=== PATIENT | male | born 1975 | race African-American/Black ===

== ENCOUNTER 2019-08-27 02:28 | Emergency (ER) | payer OTHER ==
--- NOTE | 2019-08-27 02:40 | ED Physician Documentation ---
PD HPI ABD PAIN - Stated complaint Stated Complaint: ABD PX/BACK PX - Chief complaint Chief Complaint: Abd Pain - History obtained from History obtained from: Patient - History of Present Illness Timing - onset: How many hours ago (about 6 hours ago) Timing - duration: Hours (6) Timing - details: Abrupt onset, Still present, Waxing and waning Quality: Cramping, Aching, Pain Location: Other Radiation: Right flank Improved by: No: Laying still, Position Worsened by: Palpation (right mid to upper abd). No: Eating, Breathing, Position Associated symptoms: Nausea, Loss of appetite (just today). No: Fever, Vomiting, Diarrhea, Constipation, Dysuria, Near syncope / syncope Similar symptoms before: Has not had sx before (had similar last night for few hours but improved this morning and no pain through the day. Onset again in evening and has persisted through to here.) Recently seen: Not recently seen Review of Systems Constitutional: denies: Fever, Chills Nose: denies: Rhinorrhea / runny nose, Congestion Throat: denies: Sore throat Respiratory: denies: Cough GI: reports: Abdominal Pain, Nausea. denies: Vomiting, Constipation, Diarrhea : denies: Dysuria, Frequency Neurologic: denies: Generalized weakness, Near syncope, Altered mental status PD PAST MEDICAL HISTORY - Past Medical History Past Medical History: No Cardiovascular: None Respiratory: None Endocrine/Autoimmune: None GI: None - Present Medications Home Medications: Ambulatory Orders Medication Instructions Recorded Confirmed Hydrocodone/Acetaminophen 1 each PO Q6H PRN #10 tablet 08/27/19 [Hydrocodon-Acetaminophen 5-325] Ondansetron Odt [Zofran] 4 mg TL Q6H PRN #10 tablet 08/27/19 - Allergies Allergies/Adverse Reactions: Allergies Allergy/AdvReac Type Severity Reaction Status Date / Time peanut Allergy Itching Verified 08/27/19 02:37 PD ED PE NORMAL - Vitals Vital signs reviewed: Yes - General General: Alert and oriented X 3, Well developed/nourished, Other (appears in pain) - HEENT HEENT: Pharynx benign - Neck Neck: Supple, no meningeal sign, No adenopathy - Cardiac Cardiac: RRR, No murmur - Respiratory Respiratory: Clear bilaterally - Abdomen Abdomen: Soft, Non distended, Other (tender right upper abd to right mid abd. Not tender RLQ. No soft tissue masses nor hernias. No percussion tenderness. ). No: Normal bowel sounds (diminished) - Male Male : Deferred - Rectal Rectal: Deferred - Back Back: No CVA TTP - Derm Derm: Normal color, Warm and dry - Neuro Neuro: Alert and oriented X 3, No motor deficit, Normal speech Results - Vitals Vitals: Vital Signs - 24 hr 08/27/19 08/27/19 02:30 03:04 Temperature 37.3 C Heart Rate 62 67 Respiratory 20 16 Rate Blood Pressure 164/104 H 151/100 H O2 Saturation 98 100 Oxygen O2 Source Room air - Labs Labs: Laboratory Tests 08/27/19 08/27/19 02:40 02:40 WBC 9.8 RBC 5.38 Hgb 15.5 Hct 46.7 MCV 86.8 MCH 28.8 MCHC 33.2 RDW 13.5 Plt Count 343 MPV 8.6 Neut # (Auto) 5.9 Lymph # (Auto) 2.7 [place] # (Auto) 0.9 Eos # (Auto) 0.3 Baso # (Auto) 0.1 Absolute Nucleated RBC 0.00 Nucleated RBC % 0.0 Sodium 137 Potassium 3.8 Chloride 102 Carbon Dioxide 27 Anion Gap 8.0 BUN 9 Creatinine 1.0 Estimated GFR (MDRD) 100 Glucose 111 H Calcium 8.9 Total Bilirubin 0.9 AST 29 ALT 35 Alkaline Phosphatase 101 Total Protein 8.4 H Albumin 4.2 Globulin 4.2 Albumin/Globulin Ratio 1.0 Lipase 21 L - Rads (name of study) abd CT Radiology: Prelim report reviewed (No ureteral stones nor kidney swelling. Gallstone is noted without any obvious wall thickening or surrounding fluid. Possible mass in the liver with suggestion for follow-up of ultrasound in the near future outpatient), See rad report PD MEDICAL DECISION MAKING - ED course Complexity details: reviewed results (No kidney stones are seen. He does have a gallstone without obvious cholecystitis. Consider biliary spasm.), re- evaluated patient (He is feeling better after IV medications.), considered d ifferential (Consideration of kidney stone or infection. However his tenderness is actually more upper abdomen so also consider biliary cause with radiation to the back), d/w patient Departure - Departure Disposition: 01 Home, Self Care Clinical Impression: Abdominal pain Qualifiers: Abdominal location: right upper quadrant Qualified Code(s): R10.11 - Right upper quadrant pain Cholelithiasis Qualifiers: Cholelithiasis location: gallbladder Cholecystitis presence: without cholecystitis Biliary obstruction: with biliary obstruction Qualified Code(s): K80.21 - Calculus of gallbladder without cholecystitis with obstruction Condition: Stable Record reviewed to determine appropriate education?: Yes Instructions: ED Abdominal Pain Unkn Cause Follow-Up: Kelsey Terrazas MD [Provider Admit Priv/Credential] - [facility] [Provider Group] Prescriptions: Hydrocodone/Acetaminophen [Hydrocodon-Acetaminophen 5-325] 1 each PO Q6H PRN #10 tablet PRN Reason: pain Ondansetron Odt [Zofran] 4 mg TL Q6H PRN #10 tablet PRN Reason: Nausea / Vomiting Comments: No kidney stones are seen on your CT scan. They do see a gallbladder stone without any signs of gallbladder inflammation at this time. Your location of pain could correspond with the gallbladder spasm. Small frequent fluids and clear liquids only for a day. Avoid fatty foods. Ondansatron if needed for nausea. Tylenol for mild pains or hydrocodone for worse pain. Recheck if not improved over the next 1 to 2 days at most. Return if worsening symptoms despite medication. Otherwise follow-up with your primary care and [facility] for further evaluation of possible gallbladder as a cause of the pain.
[2019-08-27] MEDS ORDERED: KETOROLAC 15 MG/ML VIAL IVP STA (02:47)
[2019-08-27] MEDS ORDERED: SODIUM CHLORIDE 0.9% 1,000 ML IV STA (02:47)
[2019-08-27] MEDS ORDERED: HYDROmorphone 1 MG/ML CARPUJECT IVP STA ×2 (02:47→03:44)
[2019-08-27] MEDS ORDERED: ONDANSETRON 4 MG/2 ML VIAL IVP STA (02:47)
[2019-08-27 02:54] LABS: BASOPHILS # (AUTO) 0.1 10^3/uL (0.0-0.1); BASOPHILS % (AUTO) 0.6 %; EOSINOPHILS # (AUTO) 0.3 10^3/uL (0.0-0.7); EOSINOPHILS % (AUTO) 2.5 %; HGB - HEMOGLOBIN 15.5 g/dL (14.0-18.0); LYMPHOCYTES # (AUTO) 2.7 10^3/uL (1.5-3.5); LYMPHOCYTES % (AUTO) 27.3 %; MEAN CORPUSCULAR HEMOGLOBIN 28.8 pg (27.0-31.0); MEAN CORPUSCULAR HGB CONC 33.2 g/dL (32.0-36.0); MEAN CORPUSCULAR VOLUME 86.8 fL (80.0-94.0); MEAN PLATELET VOLUME 8.6 fL (7.4-11.4); MONOCYTES # (AUTO) 0.9 10^3/uL (0.0-1.0); MONOCYTES % (AUTO) 9.3 %; NEUTROPHILS # (AUTO) 5.9 10^3/uL (1.5-6.6); NEUTROPHILS % (AUTO) 59.8 %; PLT - PLATELET COUNT 343 10^3/uL (130-450); RED BLOOD COUNT 5.38 10^6/uL (4.70-6.10); RED CELL DISTRIBUTION WIDTH 13.5 % (12.0-15.0); WHITE BLOOD COUNT 9.8 x10^3/uL (4.8-10.8)
[2019-08-27 03:03] LABS: ALBUMIN 4.2 g/dL (3.2-5.5); BILIRUBIN,TOTAL 0.9 mg/dL (0.2-1.0); CALCIUM 8.9 mg/dL (8.5-10.3); TOTAL PROTEIN 8.4 g/dL (6.7-8.2)
[2019-08-27] MEDS ORDERED: oxyCODONE/ACET 5/325 Prepack 4 PO STA (04:25)
[2019-08-27] MEDS ORDERED: ONDANSETRON ODT 4 MG Prepack 2 TL PRN (04:25)
[2019-08-27 04:47] VITALS: BP 141/95
--- NOTE | 2019-08-27 08:33 | CT Report ---
PROCEDURE: Abdomen/Pelvis WO INDICATIONS: right abd/flank pain abrupt tonight TECHNIQUE: Noncontrast 5 mm thick sections acquired from the diaphragms to the symphysis. 5 mm coronal and sagi ttal reformats were then performed. For radiation dose reduction, the following was used: automated exposure control, adjustment of mA and/or kV according to patient size. COMPARISON: None. FINDINGS: Image quality: Excellent. ABDOMEN: Lung bases: Lung bases are clear. Heart size is normal. Solid organs: Liver and spleen are normal in size. The liver is mildly heterogeneous and in places, slightly hypodense. Gallbladder is mildly distended and contains granular hyperdense material layeri ng dependently near the neck. No visible common duct calcification. Pancreas is normal in contours. No adrenal nodules. Kidneys are normal in size, without hydronephrosis or nephrolithiasis. Peritoneum and bowel: Unenhanced bowel loops demonstrate normal wall thickness and caliber. Normal appendix. No free fluid or air. Nodes and vessels: No retroperitoneal or mesenteric adenopathy by size criteria. Aorta and inferior vena cava are normal in caliber. Miscellaneous: No ventral hernias. PELVIS: Genitourinary: Bladder wall thickness is normal. Miscellaneous: Small fat-containing left inguinal hernia. Bones: No suspicious bony lesions. No vertebral body compression fractures. IMPRESSION: 1. Cholelithiasis. Acute cholecystitis is not excluded. Recommend ultrasound of the right upper quadr ant. 2. Mildly heterogeneous liver suggesting geographic fatty infiltration. Evaluation with ultrasound is recommended. 3. Small fat-containing left inguinal hernia. 4. Concordant with preliminary report. Reviewed by: Nazanin Llanos MD on 08/27/2019 8:31 AM PDT Approved by: Nazanin Llanos MD on 08/27/2019 8:31 AM PDT Station ID: [id number]
== END 2019-08-27 04:53 | disposition home or self-care (01) ==
LOC: ED 02:28
DX: K80.21 Calculus of gallbladder without cholecystitis with obstruction (principal); K40.90 Unilateral inguinal hernia, without obstruction or gangrene, not specified as recurrent
CPT/HCPCS: 36415; 74176; 80053; 83690; 85025; 96361; 96374; 99284; J1170

== ENCOUNTER 2019-10-22 07:27 | Emergency (ER) | payer OTHER ==
[2019-10-22 08:33] LABS: BASOPHILS # (AUTO) 0.1 10^3/uL (0.0-0.1); BASOPHILS % (AUTO) 0.7 %; EOSINOPHILS # (AUTO) 0.1 10^3/uL (0.0-0.7); EOSINOPHILS % (AUTO) 1.9 %; LYMPHOCYTES # (AUTO) 1.7 10^3/uL (1.5-3.5); LYMPHOCYTES % (AUTO) 25.7 %; MEAN CORPUSCULAR HEMOGLOBIN 29.8 pg (27.0-31.0); MEAN CORPUSCULAR HGB CONC 33.6 g/dL (32.0-36.0); MEAN CORPUSCULAR VOLUME 88.6 fL (80.0-94.0); MEAN PLATELET VOLUME 8.8 fL (7.4-11.4); MONOCYTES # (AUTO) 0.5 10^3/uL (0.0-1.0); MONOCYTES % (AUTO) 7.9 %; NEUTROPHILS # (AUTO) 4.3 10^3/uL (1.5-6.6); NEUTROPHILS % (AUTO) 63.5 %; PLT - PLATELET COUNT 295 10^3/uL (130-450); RED BLOOD COUNT 5.71 10^6/uL (4.70-6.10); RED CELL DISTRIBUTION WIDTH 14.2 % (12.0-15.0); WHITE BLOOD COUNT 6.7 x10^3/uL (4.8-10.8)
[2019-10-22] MEDS ORDERED: LIDOCAINE VISCOUS 2% 15 ML UDC MM STA (08:45)
[2019-10-22] MEDS ORDERED: MAG HYDROX/AL HYDROX/SIMETH 30 ML UDC PO STA (08:45)
[2019-10-22 08:47] LABS: ALBUMIN 4.3 g/dL (3.2-5.5); BILIRUBIN,TOTAL 0.9 mg/dL (0.2-1.0); CALCIUM 9.6 mg/dL (8.5-10.3); CREATININE 1.1 mg/dL (0.6-1.2); TOTAL PROTEIN 8.4 g/dL (6.7-8.2)
[2019-10-22 09:48] LABS: BILIRUBIN,URINE NEGATIVE (NEGATIVE); GLUCOSE, URINE (UA) NEGATIVE (NEGATIVE); KETONES,URINE (UA) NEGATIVE (NEGATIVE); LEUKOCYTE ESTERASE, URINE NEGATIVE (NEGATIVE); NITRITE,URINE NEGATIVE (NEGATIVE); OCCULT BLOOD,URINE TRACE-LYSE (NEGATIVE); PH,URINE 5.5 PH (5.0-7.5); PROTEIN,URINE NEGATIVE (NEGATIVE); UROBILINOGEN,URINE 0.2 (NORMAL) E.U./dL (NORMAL)
[2019-10-22 09:49] LABS: CLARITY,URINE CLEAR (CLEAR)
--- NOTE | 2019-10-22 10:09 | ED Physician Documentation ---
PD HPI ABD PAIN - Stated complaint Stated Complaint: ABD PX - UPPER - Chief complaint Chief Complaint: Abd Pain - History obtained from History obtained from: Patient, Family - History of Present Illness Timing - onset: Enter time (0200), Last night Timing - duration: Hours Timing - details: Abrupt onset, Still present Quality: Sharp, Pain Location: Epigastric Radiation: Chest Improved by: Other (ant-acid) Associated symptoms: Nausea. No: Vomiting, Diarrhea, Constipation Similar symptoms before: No diagnosis Recently seen: Emergency Dept - Additional information Additional information: 43-year-old male who presented in August with epigastric abdominal pain had CT scan dating then that showed a gallstone but he did not have kidney stone. He has not had episode of pain since then and then it last night at about 2:00 in the morning he began to experience severe epigastric burning pain. His gave him some antacid she gave him to [employer] which helped only a little bit. The patient is coming to the emergency department this morning with pain that is now resolving. Review of Systems Constitutional: denies: Fever Eyes: denies: Decreased vision Ears: denies: Ear pain Nose: denies: Congestion Throat: denies: Sore throat Cardiac: denies: Chest pain / pressure, Palpitations Respiratory: denies: Dyspnea, Cough GI: reports: Abdominal Pain, Nausea. denies: Vomiting : denies: Dysuria, Frequency PD PAST MEDICAL HISTORY - Past Medical History Cardiovascular: None Respiratory: None Endocrine/Autoimmune: None GI: None - Past Surgical History Past Surgical History: No - Present Medications Home Medications: Ambulatory Orders Medication Instructions Recorded Confirmed Esomeprazole Magnesium [Nexium] 20 mg PO DAILY #20 capsule. 10/22/19 Sucralfate [Carafate] 1 gm PO ACHS #60 tablet 10/22/19 - Allergies Allergies/Adverse Reactions: Allergies Allergy/AdvReac Type Severity Reaction Status Date / Time peanut Allergy Itching Verified 10/22/19 07:41 - Social History Does the pt smoke?: No Smoking Status: Never smoker Does the pt drink ETOH?: No Does the pt have substance abuse?: No - Immunizations Immunizations are current?: No Immunizations: TDAP >10years/unknown - POLST Patient has POLST: No PD ED PE NORMAL - Vitals Vital signs reviewed: Yes (Hypertensive mild) - General General: Alert and oriented X 3, No acute distress, Well developed/nourished - HEENT HEENT: Atraumatic, PERRL, EOMI - Neck Neck: Supple, no meningeal sign - Cardiac Cardiac: RRR, No murmur - Respiratory Respiratory: No respiratory distress, Clear bilaterally - Abdomen Abdomen: Normal bowel sounds, Soft, Non distended, No organomegaly, Other (Minimal epigastric point tenderness no right upper quadrant tenderness no Lima's sign.) - Back Back: No CVA TTP, No spinal TTP - Derm Derm: Normal color, Warm and dry, No rash - Extremities Extremities: No deformity, No edema, No calf tenderness / cord - Neuro Neuro: Alert and oriented X 3, paint roller winder 2-12 intact, No motor deficit, No sensory deficit, Normal speech Eye Opening: Spontaneous Motor: Obeys Commands Verbal: Oriented GCS Score: 15 - Psych Psych: Normal mood, Normal affect Results - Vitals Vitals: Vital Signs - 24 hr 10/22/19 10/22/19 07:38 09:41 Temperature 36.8 C Heart Rate 72 55 L Respiratory 16 19 Rate Blood Pressure 134/91 H 152/108 H O2 Saturation 98 98 Oxygen O2 Source Room air - Labs Labs: Laboratory Tests 10/22/19 10/22/19 10/22/19 08:29 08:29 09:41 WBC 6.7 RBC 5.71 Hgb 17.0 Hct 50.6 MCV 88.6 MCH 29.8 MCHC 33.6 RDW 14.2 Plt Count 295 MPV 8.8 Neut # (Auto) 4.3 Lymph # (Auto) 1.7 [place] # (Auto) 0.5 Eos # (Auto) 0.1 Baso # (Auto) 0.1 Absolute Nucleated RBC 0.00 Nucleated RBC % 0.0 Sodium 138 Potassium 4.1 Chloride 104 Carbon Dioxide 27 Anion Gap 7.0 BUN 10 Creatinine 1.1 Estimated GFR (MDRD) 89 Glucose 100 Calcium 9.6 Total Bilirubin 0.9 AST 36 ALT 50 Alkaline Phosphatase 90 Total Protein 8.4 H Albumin 4.3 Globulin 4.2 Albumin/Globulin Ratio 1.0 Lipase 32 Urine Color YELLOW Urine Clarity CLEAR Urine pH 5.5 Ur Specific [place] >=1.030 H Urine Protein NEGATIVE Urine Glucose (UA) NEGATIVE Urine Ketones NEGATIVE Urine Occult Blood TRACE-LYSE Urine Nitrite NEGATIVE Urine Bilirubin NEGATIVE Urine Urobilinogen 0.2 (NORMAL) Ur Leukocyte Esterase NEGATIVE Ur Microscopic Review NOT INDICATED Urine Culture Comments NOT INDICATED PD MEDICAL DECISION MAKING - ED course Complexity details: reviewed old records, reviewed results, re-evaluated patient, considered differential, d/w patient ED course: 43-year-old male with history of gallstones has developed epigastric pain and he does get some complete relief with the use of viscous lidocaine and Mylanta. His pain was improving prior to administration of the viscous lidocaine and Mylanta. He is diagnosed with gastritis and he gives additional history that he does take Aleve on an empty stomach periodically for hidradenitis. We will place the patient on a course of Carafate and Nexium and I have warned the patient to use some antacid when he stops the Nexium for several days to avoid rebound. I have asked the patient to stop using the Aleve. Departure - Departure Disposition: 01 Home, Self Care Clinical Impression: Gastritis Qualifiers: Gastritis type: unspecified gastritis Chronicity: acute Gastritis bleeding: without bleeding Qualified Code(s): K29.00 - Acute gastritis without bleeding Condition: Stable Instructions: ED PUD Vs Gastritis Follow-Up: Lora Momin MD [Primary Care Provider] - Prescriptions: Sucralfate [Carafate] 1 gm PO ACHS #60 tablet Esomeprazole Magnesium [Nexium] 20 mg PO DAILY #20 capsule.
[2019-10-22 10:18] VITALS: BP 158/100
== END 2019-10-22 10:28 | disposition home or self-care (01) ==
LOC: ED 07:27
DX: K29.00 Acute gastritis without bleeding (principal)
CPT/HCPCS: 36415; 80053; 81003; 83690; 85025; 99283; 99284; A9270; 81001; 87086